=== PATIENT | male | born 1950 | race Caucasian/White ===

== ENCOUNTER 2017-11-29 06:43 | Inpatient (IN) ==
[2017-11-29] MEDS ORDERED: IPRATROPIUM/ALBUTEROL 3 ML AMPUL.NEB NEB ONE ×2 (06:51→06:52)
--- NOTE | 2017-11-29 07:36 | Emergency Department Note ---
General Adult HPI - General Chief complaint: Shortness of Breath/Dyspnea Stated complaint: Short of Breath Time Seen by Provider: 11/29/17 07:27 Mode of arrival: ambulatory - History of Present Illness HPI Narrative: This patient has had flulike symptoms since . He has had diarrhea aches and pains slight nausea and shortness of breath. He is only had a slight cough. Most of the symptoms except the shortness of breath have improved. Shortness of breath has gotten worse. He does not have a history of COPD or asthma. He has had some fluid retention in the past. - Related Data Home Medications Medication Instructions Recorded Confirmed diflorasone 0.05 % topical cream 1 applic TOPICAL BID PRN 09/25/15 11/29/17 Previous Rx's Medication Instructions Recorded Accu-Chek Softclix Lancing See Dose Instructions .ROUTE 11/08/15 Device+Lancets kit .MEDSUPPLY #1 each NS blood-glucose meter kit See Dose Instructions .ROUTE 11/08/15 .MEDSUPPLY #1 each lisinopril 40 mg tablet 40 mg PO QDAY #90 tab 12/10/16 sitagliptin 50 mg tablet 50 mg PO QDAY #90 tab 12/10/16 FreeStyle Lite Strips See Dose Instructions .ROUTE 12/25/16 .MEDSUPPLY #100 each NS carvedilol 25 mg tablet 25 mg PO BID #180 tab 12/25/16 lancets 28 gauge See Dose Instructions .ROUTE 05/24/17 .MEDSUPPLY #100 each amlodipine 10 mg tablet 10 mg PO QDAY #90 tab 09/15/17 simvastatin 20 mg tablet 20 mg PO QPM #90 tab 09/15/17 sertraline 50 mg tablet 50 mg PO QDAY #90 tab 11/05/17 glipizide 5 mg tablet 10 mg PO BID #360 tab 11/17/17 Allergies Allergy/AdvReac Type Severity Reaction Status Date / Time metformin AdvReac Mild Diarrhea Verified 11/24/16 11:45 Review of Systems All systems ED: reviewed and negative except as stated. 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) Paresthesia (Chronic) Overweight (Chronic) Osteoarthritis cervical spine (Chronic) Metabolic Syndrome X (Chronic) Hypotestosteronemia (Chronic) Hypertension, essential (Chronic) Hyperlipidemia (Chronic) Hoarseness (Chronic) Multilevel foraminal stenosis (Chronic) Erectile dysfunction (Chronic) Elevated LFTs (Chronic) Eczema (Chronic) Diverticulitis of colon (Chronic) Diverticular disease (Chronic) DMII (diabetes mellitus, type 2) (Chronic) Depression (Chronic) Carpal tunnel syndrome (Chronic) Bronchitis (Chronic) Actinic keratosis (Chronic) Past Surgical History H/O colonoscopy (Chronic 08/12/10) H/O nasal septoplasty (Inactive) H/O vasectomy (Inactive) History of meniscectomy of left knee (Inactive) Family History Father Atrial fibrillation Diabetes mellitus Coronary artery disease Cardiac disease Essential hypertension Disorder of thyroid Mother Malignant neoplasm of breast Malignant neoplasm of pancreas Medical history: Reports: DM, hypertension Surgical history ED: Reports: no surgical history - Social History smoking status: Never smoker Physical Exam Limitations: no limitations General appearance: alert Head: atraumatic Eye: Present: normal appearance ENT: normal exam Neck: Present: normal inspection Chest: Present: normal inspection Respiratory: Present: other (Scattered rhonchi) Cardiovascular: Present: regular rate, normal rhythm, normal heart sounds Abdominal: Present: soft. Absent: distention, tenderness Neurological: Present: alert Psychiatric: Present: normal affect, normal mood Skin: Present: warm, dry, intact Course Vital Signs Temperature 97.9 F 11/29/17 06:44 Pulse Rate 71 11/29/17 06:44 Respiratory Rate 24 H 11/29/17 06:44 Blood Pressure 118/66 11/29/17 06:44 Pulse Oximetry (%) 88 L 11/29/17 06:44 Temperature 97.9 F 11/29/17 06:44 Pulse Rate 65 11/29/17 07:49 Respiratory Rate 20 11/29/17 07:25 Blood Pressure 105/63 11/29/17 07:49 Pulse Oximetry (%) 88 L 11/29/17 07:49 Medical Decision Making - MDM Narrative Medical decision making narrative: Patient was positive influenza a and has bilateral lower lobe infiltrates. Will be admitted to the ICU by Dr. Lund. - Lab Data Lab results reviewed: Yes I reviewed the patient's lab results. Result diagrams: 11/29/17 07:54 11/29/17 07:54 Lab Results 11/29/17 11/29/17 11/29/17 Range/Units 07:54 07:54 07:54 WBC 4.5 (4.5-11.0) K/mcL RBC 4.50 (4.50-5.90) M/mcL Hgb 13.2 L (13.5-16.5) g/dL Hct 37.7 L (41.0-55.0) % MCV 83.8 (80.0-100.0) fL MCH 29.3 (26.0-34.0) pg MCHC 35.0 (31.0-36.0) g/dL RDW 14.1 (11.5-14.5) % Plt Count 160 (140-440) K/mcL MPV 8.7 (7.4-10.4) fL Gran % 73.5 (38.0-78.0) % Lymph % (Auto) 14.5 L (15.5-49.0) % [place] % (Auto) 10.9 (1.0-12.0) % Eos % (Auto) 0.8 (0.0-7.0) % Baso % (Auto) 0.3 (0.0-2.0) % Gran # 3.3 (1.8-8.0) K/mcL Lymph # (Auto) 0.6 L (1.5-4.8) K/mcL [place] # (Auto) 0.5 (0.1-0.9) K/mcL Eos # (Auto) 0 (0.0-0.7) K/mcL Baso # (Auto) 0 (0.0-0.3) K/mcL D-Dimer 0.72 H (0.00-0.40) ug/ml VBG Lactic Acid (0.5-2.2) mmol/L Sodium 136 (133-145) mmol/L Potassium 2.9 L* (3.3-5.1) mmol/L Chloride 96 (96-108) mmol/L Carbon Dioxide 25 (22-30) mmol/L Anion Gap 15.0 (8-16) BUN 15 (8-23) mg/dl Creatinine 1.2 (0.7-1.2) mg/dl GFR Calculation 63 Glucose 160 H (70-105) mg/dL Calcium 7.9 L (8.6-10.4) mg/dl Total Bilirubin 0.7 (0.0-1.0) mg/dL AST 66 H (0-37) U/l ALT 39 (0-40) U/l Alkaline Phosphatase 51 (39-117) U/L Troponin T (0-0.03) ng/ml Total Protein 7.0 (5.9-8.4) gm/dL Albumin 3.7 (3.2-5.2) gm/dL Globulin 3.3 (2.2-3.7) gm/dL Albumin/Globulin Ratio 1.1 (1.0-2.3) 11/29/17 11/29/17 Range/Units 07:54 07:54 WBC (4.5-11.0) K/mcL RBC (4.50-5.90) M/mcL Hgb (13.5-16.5) g/dL Hct (41.0-55.0) % MCV (80.0-100.0) fL MCH (26.0-34.0) pg MCHC (31.0-36.0) g/dL RDW (11.5-14.5) % Plt Count (140-440) K/mcL MPV (7.4-10.4) fL Gran % (38.0-78.0) % Lymph % (Auto) (15.5-49.0) % [place] % (Auto) (1.0-12.0) % Eos % (Auto) (0.0-7.0) % Baso % (Auto) (0.0-2.0) % Gran # (1.8-8.0) K/mcL Lymph # (Auto) (1.5-4.8) K/mcL [place] # (Auto) (0.1-0.9) K/mcL Eos # (Auto) (0.0-0.7) K/mcL Baso # (Auto) (0.0-0.3) K/mcL D-Dimer (0.00-0.40) ug/ml VBG Lactic Acid 1.6 (0.5-2.2) mmol/L Sodium (133-145) mmol/L Potassium (3.3-5.1) mmol/L Chloride (96-108) mmol/L Carbon Dioxide (22-30) mmol/L Anion Gap (8-16) BUN (8-23) mg/dl Creatinine (0.7-1.2) mg/dl GFR Calculation Glucose (70-105) mg/dL Calcium (8.6-10.4) mg/dl Total Bilirubin (0.0-1.0) mg/dL AST (0-37) U/l ALT (0-40) U/l Alkaline Phosphatase (39-117) U/L Troponin T < 0.01 (0-0.03) ng/ml Total Protein (5.9-8.4) gm/dL Albumin (3.2-5.2) gm/dL Globulin (2.2-3.7) gm/dL Albumin/Globulin Ratio (1.0-2.3) - Radiology Data Radiology results reviewed: Yes I reviewed the patient's radiology results. Disposition Pt seen by RESEARCH COMPLIANCE SPECIALIST/PA only: No Clinical Impression: Community acquired pneumonia, Influenza A Disposition: Xfer As Inpt ([facility]) Condition: Good Referrals: Edward Queevdo MD [Primary Care Provider] - Time of Disposition: 09:05
--- NOTE | 2017-11-29 07:39 | XRay Report ---
INDICATION: Dyspnea for three days TECHNIQUE: PA and lateral upright chest x-ray COMPARISON: None FINDINGS:Bilateral lower lobe infiltrates. Appearance is consistent with pneumonia. Follow-up radiographs recommended. Heart size and vascularity are normal. No pulmonary edema or pulmonary congestion. No evidence for significant pleural effusion. IMPRESSION: Bilateral lower lobe infiltrates consistent with pneumonia Interpreted and Authenticated by: Chan Hammer 11/29/17
[2017-11-29] MEDS ORDERED: DOXYCYCLINE 100 MG in DEXTROSE 5% IN WATER 100 ML IV ONE (07:45)
[2017-11-29] MEDS ORDERED: cefTRIAXone 1 GM VIAL IV ONE (07:45)
[2017-11-29] MEDS ORDERED: LACTATED RINGERS 1,000 ML IV SCH (07:45)
[2017-11-29 08:22] LABS: Basophils # (Auto) 0 K/mcL (0.0-0.3); Basophils % (Auto) 0.3 % (0.0-2.0); Eosinophils # (Auto) 0 K/mcL (0.0-0.7); Eosinophils % (Auto) 0.8 % (0.0-7.0); Granulocytes % (Auto) 73.5 % (38.0-78.0); Lymphocytes # (Auto) 0.6 K/mcL (1.5-4.8); Lymphocytes % (Auto) 14.5 % (15.5-49.0); Mean Cell Volume 83.8 fL (80.0-100.0); Mean Corpuscular Hemoglobin 29.3 pg (26.0-34.0); Monocytes # (Auto) 0.5 K/mcL (0.1-0.9); Monocytes % (Auto) 10.9 % (1.0-12.0); Platelet Count 160 K/mcL (140-440); Red Cell Distribution Width 14.1 % (11.5-14.5)
[2017-11-29 08:44] LABS: ALT/SGPT 39 U/l (0-40); Albumin 3.7 gm/dL (3.2-5.2); Albumin/Globulin Ratio 1.1 (1.0-2.3); Alkaline Phosphatase 51 U/L (39-117); Blood Urea Nitrogen 15 mg/dl (8-23)
[2017-11-29] MEDS ORDERED: ACETAMINOPHEN 1,000 MG/100 ML BOTTLE IV PRN (10:16)
[2017-11-29] MEDS ORDERED: ONDANSETRON 4 MG/2 ML VIAL IV PRN (10:16)
[2017-11-29] MEDS ORDERED: OSELTAMIVIR PHOSPHATE 75 MG CAPSULE PO ONE (10:16)
[2017-11-29] MEDS ORDERED: MAGNESIUM SULFATE 2 GM/50 ML BAG IV PRN (10:16)
[2017-11-29] MEDS ORDERED: VANCOMYCIN PER PHARMACY IV SCH (10:16)
[2017-11-29] MEDS ORDERED: POTASSIUM CHLORIDE 20 MEQ PACKET PO PRN (10:16)
[2017-11-29] MEDS ORDERED: ACETAMINOPHEN 325 MG TABLET PO PRN (10:16)
[2017-11-29] MEDS: 0.9 % SODIUM CHLORIDE 1,000 ML IV SCH (10:26)
[2017-11-29] MEDS: LEVOFLOXACIN 750 MG/150 ML BAG IV SCH (10:27)
[2017-11-29 10:42] LABS: C-Reactive Protein 4.5 mg/dl (0.0-0.8)
[2017-11-29] MEDS ORDERED: [UNRECOGNIZED DRUG - OTHER] TOPICAL PRN (10:42)
[2017-11-29] MEDS ORDERED: DEXTROSE 50% 50 ML VIAL IV PRN (10:43)
[2017-11-29] MEDS ORDERED: DEXTROSE 31 GM ORAL.SUSP PO PRN (10:43)
[2017-11-29 11:11] LABS: Appearance,Urine CLEAR; Bacteria,Urine 0 /hpf (0); Bilirubin,Urine NEG (NEG); Color,Urine YELLOW; Glucose,Urine (UA) NEGATIVE (NEG); Leukocyte Esterase,Urine 75 /uL (NEG); Mucus,Urine FEW /hpf (0); Protein,Urine NEG (NEG); Specific Gravity,Urine 1.008 (1.000-1.035); Urine Blood NEG mg/dL (<0.03); Urine RBC 2 /hpf (0-1); Urine Squamous Epithelial Cell 0 /hpf (0-4); Urine Transitional Epi Cells < 1 /hpf (0-2); Urine WBC 11 /hpf (0-4); Urobilinogen,Urine NEG (NEG)
--- NOTE | 2017-11-29 11:28 | History and Physical Report ---
DATE OF ADMISSION: 11/29/2017 PRIMARY CARE PHYSICIAN: Edward Quevedo M.D. REASON FOR ADMISSION: Worsening shortness of breath. HISTORY OF CHIEF COMPLAINT: The patient is a 67-year-old, otherwise fairly healthy, gentleman who has been feeling symptoms of upper respiratory infection, including flu-like symptoms with myalgias, weakness starting since . Patient's symptoms have progressed to the point the patient has had a gradual decline in functional status along with associated dyspnea on exertion but no associated orthopnea or paroxysmal nocturnal dyspnea. The patient endorses to cough. Over the last 24 hours, the patient has been experiencing dyspnea at rest and even minimal activity would lead to him huffing and puffing for at least 5 minutes. He was unable to perform activities of daily living. He also has associated diarrhea over the last couple of days, along with incontinence which has since improved. His also complained that he has not been thinking right. With increasing concerns, the patient came to [facility] Emergency Room. He endorses to sick contacts, including mother with similar symptoms. He denies medication changes, lower extremity swelling, rash, arthralgia, or joint pain. Initial workup in the ER was significant for chest infiltrates of bilateral lower lobes suggestive of pneumonia and influenza positive. EKG has evidence of right bundle branch block, sinus rhythm. White count 4.5. Potassium 2.9. Hospitalist Service was consulted. At the time of evaluation, the patient is alert, oriented, in moderate distress on 3 liters of oxygen. He was able to answer most of the questions and endorsed to history as above. He denies travel. He denies headache, photophobia, myalgias, weight loss or glandular swelling. REVIEW OF SYSTEMS: A ten-point review of system was performed and negative except the ones discussed above. PAST MEDICAL HISTORY: 1. Hypertension. 2. Diabetes mellitus type 2. 3. Neuropathy. 4. Anxiety disorder. 5. Hyperlipidemia. CURRENT MEDICATIONS: 1. Sitagliptin 50 mg daily. 2. Simvastatin 20 mg q.p.m. 3. Sertraline 50 mg daily. 4. Lisinopril 40 mg daily. 5. Glipizide 10 mg b.i.d. 6. Coreg 25 mg b.i.d. 7. Amlodipine 10 mg daily. FAMILY HISTORY: Significant for father with atrial fibrillation, coronary artery disease, diabetes mellitus type 2 and hypertension. Mother with breast and pancreatic cancer. SOCIAL HISTORY: The patient is , lives with his . No significant history of smoking, alcoholism or substance abuse. ALLERGIES: METFORMIN. PHYSICAL EXAMINATION: GENERAL: The patient is alert, oriented, in moderate distress from shortness of breath. VITAL SIGNS: BMI 35.6. Height 5 feet 11 inches. Blood pressure 104/59, respiration rate 20, temperature 97.9, pulse 71, sats 88% on room air improving to 93% on 3 liters of oxygen. HEENT: Pupils symmetric. Oral cavity is dry. No ear or nose discharge. Head is normocephalic and atraumatic. NECK: No lymphadenopathy. CHEST: S1, S2, regular rhythm. ESM grade 1. Diminished breath sounds bilateral bases, late inspiratory crackles posterior and lateral chest bilaterally. ABDOMEN: Soft, distended but no organomegaly. No fluid thrill. No guarding or rebound. LOWER EXTREMITIES: No cyanosis or clubbing. No joint swelling. SKIN: No suspicious lesions. Normal range of motion of the joints with no joint swelling or erythema. PSYCH: Alert, cooperative, minimally anxious. NEURO: Nonfocal, moving all four extremities. LABS AND IMAGING: White count 4.5, hemoglobin 13.2, platelets 160. Lactic acid 1.6. Sodium 136, potassium 2.9, creatinine 1.2, and BUN 15. LFTs unremarkable. X-ray chest: Bilateral infiltrates suggestive of pneumonia. ASSESSMENT AND PLAN: A 67-year-old admitted with influenza pneumonia with influenza positive A. 1. Influenza pneumonia. Continue Tamiflu and empiric coverage for super infection including Staph aureus. Continue bronchodilators along with pulmonary toilet. 2. Hypoxic respiratory insufficiency. Continue supplemental oxygen/bronchodilators. Etiology secondary to above. 3. Hypokalemia. Continue potassium replacement. 4. Other prior medical issues, including: a. History of diabetes mellitus type 2. Continue sliding scale insulin/sitagliptin. b. Hypertension. Continue amlodipine/Coreg. PLAN FOR TODAY: 1. Admit as inpatient. 2. Preexisting medical condition management as above. 3. DVT prophylaxis on heparin. 4. Echocardiogram. 5. Admitted to telemetry in light of hypoxic respiratory insufficiency, influenza pneumonia. 6. Continue potassium replacement. [email or web address] Job ID: [id number] Doc ID: [id number] Sunil Quevedo MD
[2017-11-29] MEDS: INSULIN LISPRO 1 UNIT/0.01 ML UNIT SQ SCH ×3 (11:51→20:54)
[2017-11-29] MEDS: VANCOMYCIN 1,500 MG in 0.9 % SODIUM CHLORIDE 500 ML IV SCH (13:46)
[2017-11-29] MEDS: IPRATROPIUM/ALBUTEROL 3 ML AMPUL.NEB NEB SCH ×4 (13:49→22:56)
[2017-11-29] MEDS: 0.9 % SODIUM CHLORIDE 10 ML SYRINGE IV SCH ×2 (14:02→21:49)
[2017-11-29] MEDS: CARVEDILOL 12.5 MG TABLET PO SCH (17:04)
[2017-11-29] MEDS: BUDESONIDE 0.5 MG/2 ML AMPUL.NEB NEB SCH ×2 (18:55→19:02)
[2017-11-29] MEDS: OSELTAMIVIR PHOSPHATE 75 MG CAPSULE PO SCH (20:53)
[2017-11-29] MEDS: DOCUSATE SODIUM 100 MG CAPSULE PO SCH (20:53)
[2017-11-29] MEDS: HEPARIN 5,000 UNIT/ML VIAL SQ SCH (20:53)
[2017-11-29] MEDS ORDERED: SIMVASTATIN 20 MG TABLET PO SCH (21:00)
[2017-11-29] MEDS ORDERED: SENNOSIDES/DOCUSATE SODIUM 1 TAB TABLET PO SCH (21:00)
[2017-11-30] MEDS: IPRATROPIUM/ALBUTEROL 3 ML AMPUL.NEB NEB SCH ×6 (03:10→23:01)
[2017-11-30 04:35] LABS: Mean Cell Volume 84.1 fL (80.0-100.0); Mean Corpuscular HGB Conc 34.5 g/dL (31.0-36.0); Platelet Count 149 K/mcL (140-440); Red Cell Distribution Width 14.5 % (11.5-14.5)
[2017-11-30 05:05] LABS: ALT/SGPT 35 U/l (0-40); Albumin 3.7 gm/dL (3.2-5.2); Albumin/Globulin Ratio 1.2 (1.0-2.3); Alkaline Phosphatase 48 U/L (39-117); Bilirubin,Direct < 0.2 mg/dL (0.0-0.3); Blood Urea Nitrogen 12 mg/dl (8-23); Gamma Glutamyl Transpeptidase 16 U/L (8-61); Uric Acid 3.2 mg/dL (2.5-8.0)
[2017-11-30] MEDS: 0.9 % SODIUM CHLORIDE 10 ML SYRINGE IV SCH ×3 (05:55→21:38)
[2017-11-30 06:23] LABS: Band Neutrophils % 12 % (0-10); Basophils % (Manual) 1 % (0-2); Lymphocytes % 18 % (15-49); Monocytes % (Manual) 13 % (1-12); Platelet Estimate NORMAL (NORMAL); RBC Morphology NORMAL (NORMAL); Segmented Neutrophils % 50 % (38-78)
[2017-11-30] MEDS: BUDESONIDE 0.5 MG/2 ML AMPUL.NEB NEB SCH ×2 (07:38→19:19)
[2017-11-30] MEDS: CARVEDILOL 12.5 MG TABLET PO SCH ×2 (08:04→17:20)
[2017-11-30] MEDS: 0.9 % SODIUM CHLORIDE 1,000 ML IV SCH (08:05)
[2017-11-30] MEDS: INSULIN LISPRO 1 UNIT/0.01 ML UNIT SQ SCH ×5 (08:05→21:38)
[2017-11-30] MEDS ORDERED: SERTRALINE 50 MG TABLET PO SCH (09:00)
[2017-11-30] MEDS ORDERED: sitaGLIPtin 50 MG TABLET PO SCH (09:00)
[2017-11-30] MEDS ORDERED: LISINOPRIL 20 MG TABLET PO SCH (09:00)
[2017-11-30] MEDS ORDERED: amLODIPine 10 MG TABLET PO SCH (09:00)
[2017-11-30] MEDS: HEPARIN 5,000 UNIT/ML VIAL SQ SCH ×2 (09:09→21:37)
[2017-11-30] MEDS: LEVOFLOXACIN 750 MG/150 ML BAG IV SCH (09:09)
[2017-11-30] MEDS: DOCUSATE SODIUM 100 MG CAPSULE PO SCH ×2 (09:09→21:39)
[2017-11-30] MEDS: OSELTAMIVIR PHOSPHATE 75 MG CAPSULE PO SCH ×2 (09:12→21:39)
[2017-11-30] MEDS: VANCOMYCIN 1,500 MG in 0.9 % SODIUM CHLORIDE 500 ML IV SCH (10:56)
[2017-11-30] MEDS ORDERED: DEXTROSE 31 GM ORAL.SUSP PO PRN (11:41)
[2017-11-30] MEDS ORDERED: MAGNESIUM SULFATE 2 GM/50 ML BAG IV PRN (11:41)
[2017-11-30] MEDS ORDERED: 0.9 % SODIUM CHLORIDE 1,000 ML IV SCH (11:41)
[2017-11-30] MEDS ORDERED: DEXTROSE 50% 50 ML VIAL IV PRN (11:41)
[2017-11-30] MEDS ORDERED: VANCOMYCIN PER PHARMACY IV SCH (11:41)
[2017-11-30] MEDS ORDERED: ACETAMINOPHEN 1,000 MG/100 ML BOTTLE IV PRN (11:41)
[2017-11-30] MEDS ORDERED: ACETAMINOPHEN 325 MG TABLET PO PRN (11:41)
[2017-11-30] MEDS ORDERED: [UNRECOGNIZED DRUG - OTHER] TOPICAL PRN (11:41)
[2017-11-30] MEDS ORDERED: ONDANSETRON 4 MG/2 ML VIAL IV PRN (11:41)
[2017-11-30] MEDS ORDERED: POTASSIUM CHLORIDE 20 MEQ PACKET PO PRN (11:41)
--- NOTE | 2017-11-30 15:24 | Internal Med Progress Note ---
Medical - PN: Subj Patient information: Note initiated : 11/30/17 at 3:22 pm Service Date, if different from initiated Date: [] Patient: Javed Kemp 67 y/o M admitted on 11/29/17 for SOB/Influenza Pneumonia with Influenza Positive A. Chief Complaint: [] Interval history: 11/29 patient admitted with influenza a pneumonia. admitted to telemetry.started on Tamiflu. Empiric coverage for staph. Associated hypoxic respiratory insufficiency requiring 3 L oxygen. Hypokalemia 2.9 on replacement. 11/30-patient doing dramatically better. Improved cough shortness of breath. Fever defervesced. No overnight events. No concerns per staff.potassium 3.3.cultures negative so far. Transfer to medical floor.. - Constitutional Vitals: Vital Signs Temp Pulse Resp BP Pulse Ox 98.9 F 72 16 136/69 93 11/30/17 12:40 11/30/17 12:40 11/30/17 12:40 11/30/17 12:40 11/30/17 12:40 Period Temp Pulse Resp BP Sys/Julian Pulse Ox Last 24 Hr 98.5 F-99.6 F 61-81 16-20 118-157/61-83 89-98 Intake and Output 11/30/17 11/30/17 11/30/17 05:59 13:59 21:59 Intake Total 240 / 240 1740 / 1740 Output Total 750 / 750 865 / 865 Balance -510 / -510 875 / 875 Weight 256 lb 4.8 oz Patient Weight 12/01/17 05:59 Weight 256 lb 4.8 oz Intake & Output: Intake & Output 11/30/17 11/30/17 11/30/17 05:59 13:59 21:59 Intake Total 240 / 240 1740 / 1740 Output Total 750 / 750 865 / 865 Balance -510 / -510 875 / 875 Weight 256 lb 4.8 oz Intake: IV 1500 / 1500 Sodium Chloride 0.9% 1,000 ml @ 1000 / 1000 50 mls/hr IV .Q20H RUBÉN Rx#: [id number] Vancomycin 1,500 mg In Sodium 500 / 500 Chloride 0.9% 500 ml @ 333.3 mls/hr IV Q24H RUBÉN Rx#: [id number] Oral 240 / 240 240 / 240 Output: Void Amount 750 / 750 865 / 865 Other: Meal Lunch Percent of Meal Consumed 100% Feeding Ability Independent Stool Size Moderate Stool Color Brown Stool Consistency Soft Formed # Voids 1 1 # Bowel Movements 1 General appearance: cooperative, no acute distress Exam: alert oriented nonlabored breathingOn 2 L oxygen No anxiety nondistended abdomen No lymphedema Medical - PN: Obj Da - Labs CBC & Chem 7: 11/30/17 03:30 11/30/17 03:30 Labs: Abnormal Lab Results 11/30/17 11/30/17 11/29/17 03:30 03:30 10:45 Hgb 13.1 L Hct 37.8 L Lymph % (Auto) Lymph # (Auto) Band Neutrophils % 12 H Monocytes % (Manual) 13 H Reactive Lymphocytes 6 H ESR D-Dimer Potassium Glucose 127 H Calcium 7.9 L AST 48 H Lactate Dehydrogenase 342 H C-Reactive Protein Ur Leukocyte Esterase 75 A Urine RBC 2 H Urine WBC 11 H 11/29/17 11/29/17 11/29/17 10:16 07:54 07:54 Hgb Hct Lymph % (Auto) Lymph # (Auto) Band Neutrophils % Monocytes % (Manual) Reactive Lymphocytes ESR 38 H D-Dimer Potassium 2.9 L* Glucose 160 H Calcium 7.9 L AST 66 H Lactate Dehydrogenase C-Reactive Protein 4.5 H Ur Leukocyte Esterase Urine RBC Urine WBC 11/29/17 11/29/17 07:54 07:54 Hgb 13.2 L Hct 37.7 L Lymph % (Auto) 14.5 L Lymph # (Auto) 0.6 L Band Neutrophils % Monocytes % (Manual) Reactive Lymphocytes ESR D-Dimer 0.72 H Potassium Glucose Calcium AST Lactate Dehydrogenase C-Reactive Protein Ur Leukocyte Esterase Urine RBC Urine WBC Meds: Medications Acetaminophen (Tylenol) 650 mg PO Q4-6HP PRN PRN Reason: PAIN/FEVER > 101 Albuterol/Ipratropium (Duoneb) 3 ml NEB Q4HRT [facility] Amlodipine Besylate (Norvasc) 10 mg PO QDAY [facility] Budesonide (Pulmicort) 0.5 mg NEB Q12 [facility] Carvedilol (Coreg) 25 mg PO BIDCC [facility] Dextrose (Dextrose 50%) 0 ml IV UD PRN PRN Reason: Hypoglycemia Diagnostic Test (Pha) (Accu-Chek) 1 each FS ACHS RUBÉN Last Admin: 11/30/17 12:04 Dose: 1 each Docusate Sodium (Colace) 100 mg PO BID [facility] Glucose (Insta-Glucose) 15 gm PO PRN PRN PRN Reason: Hypoglycemia Heparin Sodium (Porcine) (Heparin) 5,000 unit SQ Q12 [facility] Levofloxacin (Levaquin) 750 mg in 150 mls @ 100 mls/hr IV DAILY [facility] Magnesium Sulfate (Magnesium Sulfate) 2 gm in 50 mls @ 50 mls/hr IV UD PRN PRN Reason: MG = or < 1.7 Acetaminophen (Ofirmev) 1,000 mg in 100 mls @ 200 mls/hr IV Q6HP PRN PRN Reason: PAIN/FEVER > 101 Vancomycin HCl 1,500 mg/ (Sodium Chloride) 500 mls @ 333.3 mls/hr IV DAILY@ 1000 [facility] Insulin Human Lispro (Humalog) 0 unit SQ ACHS RUBÉN PRN Reason: Protocol Last Admin: 11/30/17 12:35 Dose: 3 unit Lisinopril (Zestril) 40 mg PO DAILY [facility] Ondansetron HCl (Zofran) 4 mg IV Q4-6HP PRN PRN Reason: Nausea And Vomiting Oseltamivir Phosphate (Tamiflu) 75 mg PO BID [facility] Diflorasone Diacetate 0.05% Topical Cream 1 dose TOPICAL BID PRN PRN Reason: Itching Potassium Chloride (Klor-Con) 40 meq PO DAILYP PRN PRN Reason: K+ < 3.5 Last Admin: 11/30/17 15:01 Dose: 40 meq Senna/Docusate Sodium (Senna Plus Tablet) 1 tab PO HS [facility] Sertraline HCl (Zoloft) 50 mg PO QDAY [facility] Simvastatin (Zocor) 20 mg PO QPM [facility] Sitagliptin Phosphate (Januvia) 50 mg PO QDAY [facility] Sodium Chloride (Saline Flush) 10 ml IV Q8 [facility] Last Admin: 11/30/17 12:51 Dose: 10 ml Vancomycin HCl (Vancomycin Per Pharmacy) 1 order IV [facility] [place] - PN: A/P - Time Spent With Patient Total time spent is greater than 50% in coordination of care (as documented) at patient's floor/unit and/or counseling patient: 15 - 24 minutes - Narrative A/P Narrative: assessment * Influenza pneumonia-on Tamiflu/empiric staph coverage. Clinically improving. DC vancomycin in 24 hours * Hypoxic respiratory infection clinically improving on 2 L oxygen * Hypokalemia improving from 2.93.3. Continue potassium replacement. * DM type II on sliding scale insulin/sitagliptin * History of hypertension on amlodipine/Coreg * full codestatus * Prophylaxis heparin Plan * continue conservative management as above * replace potassium * Pre-existing medical condition management as above Medical - PN: Qual - Stroke Symptom Onset Unknown: No - VTE Deep Vein Thrombosis/Pulmonary Embolism Present on Admission: No
[2017-11-30] MEDS ORDERED: SIMVASTATIN 20 MG TABLET PO SCH (21:00)
[2017-11-30] MEDS ORDERED: SENNOSIDES/DOCUSATE SODIUM 1 TAB TABLET PO SCH (21:00)
[2017-12-01] MEDS: IPRATROPIUM/ALBUTEROL 3 ML AMPUL.NEB NEB SCH ×2 (03:30→07:38)
[2017-12-01 05:53] LABS: Mean Corpuscular HGB Conc 35.5 g/dL (31.0-36.0); Mean Corpuscular Hemoglobin 29.8 pg (26.0-34.0); Platelet Count 137 K/mcL (140-440); RBC 3.91 M/mcL (4.50-5.90)
--- NOTE | 2017-12-01 06:20 | XRay Report ---
INDICATION: Pneumonia. Follow-up. TECHNIQUE: AP chest x-ray,portable semiupright COMPARISON: 11/29/2017 FINDINGS:Bilateral, bibasilar infiltrates. These are more prominent than on previous examination. Continued radiographic follow-up recommended. Heart size appears enlarged but this is probably related to AP portable positioning. No evidence for congestive heart failure. IMPRESSION: 1. Bibasilar infiltrates, slightly worse than on 11/29/2017. 2. Continued follow-up recommended. Interpreted and Authenticated by: Chan Hammer 12/01/17
[2017-12-01 06:40] LABS: ALT/SGPT 31 U/l (0-40); Albumin 3.3 gm/dL (3.2-5.2); Albumin/Globulin Ratio 1.1 (1.0-2.3); Alkaline Phosphatase 43 U/L (39-117); Bilirubin,Direct < 0.2 mg/dL (0.0-0.3); Blood Urea Nitrogen 10 mg/dl (8-23); Gamma Glutamyl Transpeptidase 16 U/L (8-61); Uric Acid 2.5 mg/dL (2.5-8.0)
[2017-12-01] MEDS: 0.9 % SODIUM CHLORIDE 10 ML SYRINGE IV SCH (07:04)
[2017-12-01] MEDS: INSULIN LISPRO 1 UNIT/0.01 ML UNIT SQ SCH (07:30)
[2017-12-01] MEDS: HEPARIN 5,000 UNIT/ML VIAL SQ SCH (07:31)
[2017-12-01] MEDS: OSELTAMIVIR PHOSPHATE 75 MG CAPSULE PO SCH (07:31)
[2017-12-01] MEDS: CARVEDILOL 12.5 MG TABLET PO SCH (07:31)
[2017-12-01] MEDS: BUDESONIDE 0.5 MG/2 ML AMPUL.NEB NEB SCH (07:38)
[2017-12-01] MEDS: DOCUSATE SODIUM 100 MG CAPSULE PO SCH (08:02)
[2017-12-01 08:12] LABS: Lymphocytes % 26 % (15-49); Monocytes % (Manual) 11 % (1-12); Platelet Estimate DECREASED (NORMAL); RBC Morphology NORMAL (NORMAL); Segmented Neutrophils % 63 % (38-78)
[2017-12-01] MEDS ORDERED: LISINOPRIL 20 MG TABLET PO SCH (09:00)
[2017-12-01] MEDS ORDERED: sitaGLIPtin 50 MG TABLET PO SCH (09:00)
[2017-12-01] MEDS ORDERED: amLODIPine 10 MG TABLET PO SCH (09:00)
[2017-12-01] MEDS ORDERED: LEVOFLOXACIN 750 MG/150 ML BAG IV SCH (09:00)
[2017-12-01] MEDS ORDERED: SERTRALINE 50 MG TABLET PO SCH (09:00)
--- NOTE | 2017-12-01 09:52 | Discharge Summary ---
Medical - DS: Prov Patient information: Note initiated : 12/01/17 at 9:50 am Service Date, if different from initiated Date: [] Patient: Javed Kemp 67 y/o M admitted on 11/29/17 for SOB/Influenza Pneumonia with Influenza Positive A. Chief Complaint: [] Date of admission: 11/29/17 10:00 Discharge date: 12/01/17 Primary care physician: Edward Quevedo Medical - DS: Meds - Discharge Medications Active and Home Medications: Home Medications diflorasone 0.05 % topical cream 1 applic TOPICAL BID PRN 09/25/15 [History Confirmed 11/29/17 Last Taken 11/29/17 09:00] lisinopril 40 mg tablet 40 mg PO QDAY #90 tab 12/10/16 [Rx Confirmed 11/29/17 Last Taken 11/29/17 09:00] sitagliptin 50 mg tablet 50 mg PO QDAY #90 tab 12/10/16 [Rx Confirmed 11/29/17 Last Taken 11/29/17 09:00] carvedilol 25 mg tablet 25 mg PO BID #180 tab 12/25/16 [Rx Confirmed 11/29/17 Last Taken 11/29/17 09:00] amlodipine 10 mg tablet 10 mg PO QDAY #90 tab 09/15/17 [Rx Confirmed 11/29/17 Last Taken 11/29/17 09:00] simvastatin 20 mg tablet 20 mg PO QPM #90 tab 09/15/17 [Rx Confirmed 11/29/17 Last Taken 11/29/17 09:00] sertraline 50 mg tablet 50 mg PO QDAY #90 tab 11/05/17 [Rx Confirmed 11/29/17 Last Taken 11/29/17 09:00] glipizide 5 mg tablet 10 mg PO BID #360 tab 11/17/17 [Rx Confirmed 11/29/17 Last Taken 11/29/17 09:00] Medical - DS: Hosp Hospital course: Discharge diagnosis * Influenza pneumonia-clinical improvement noted on Tamiflu. ischarge home on additional 3 days of Tamiflu. * Hypoxic respiratory insufficiency- clinically improving down to 1 L oxygen. exercise oximetry and discharged home oxygen if qualifies. * Hypokalemia improving from 2.9->3.3. Continue oral potassium replacement. * DM type II on sliding scale insulin/sitagliptin * History of hypertension managed on amlodipine/Coreg [facility] Mr. Kemp is a 67 year old M 11/29 patient admitted with influenza a pneumonia. admitted to telemetry.started on Tamiflu. Empiric coverage for staph. Associated hypoxic respiratory insufficiency requiring 3 L oxygen. Hypokalemia 2.9 on replacement. 11/30-patient doing dramatically better. Improved cough shortness of breath. Fever defervesced. No overnight events. No concerns per staff.potassium 3.3.cultures negative so far. Transfer to medical floor.. December 01- patient doing well. No overnight events. Currently on 1 L oxygen. Ambulating. Improved shortness of breath. No fever. No concerns per staff. Tolerating diet. Episode of loose bowel movement this morning but no abdominal pain and cramps. Discharge diagnosis: . - Time Spent with Patient Total time spent providing and/or coordinating discharge services: Greater than 30 minutes Medical - DS: Exam - Constitutional Vitals: Vital Signs Temp Pulse Pulse Resp BP BP Pulse Ox 12/01/17 07:41 72 18 92 12/01/17 07:40 92 12/01/17 07:39 97.8 F 79 20 170/68 90 12/01/17 03:35 97.7 F 71 20 163/81 95 12/01/17 00:00 97.3 F 65 18 154/72 91 11/30/17 23:11 71 16 94 11/30/17 20:00 98.8 F 67 16 144/64 92 11/30/17 19:33 70 16 91 11/30/17 16:00 98.8 F 77 16 145/76 93 11/30/17 15:33 66 16 11/30/17 12:40 98.9 F 72 16 136/69 93 11/30/17 11:30 68 20 Intake and Output 11/30/17 12/01/17 12/01/17 21:59 05:59 13:59 Intake Total 600 / 600 200 / 200 Output Total 325 / 325 1000 / 1000 220 / 220 Balance 275 / 275 -800 / -800 -220 / -220 Intake: Oral 600 / 600 200 / 200 Output: Void Amount 325 / 325 1000 / 1000 220 / 220 Other: Meal Dinner Percent of Meal Consumed 100% Stool Size Moderate Moderate Stool Color Brown Brown Stool Consistency Soft Loose Formed # Voids 1 1 # Bowel Movements 1 1 Weight 260 lb 14.4 oz Medical - DS: Data Labs on day of discharge: Labs from last 24 hours 12/01/17 12/01/17 04:35 04:35 WBC 4.6 RBC 3.91 L Hgb 11.7 L Hct 32.9 L MCV 84.0 MCH 29.8 MCHC 35.5 RDW 14.0 Plt Count 137 L MPV 8.7 Total Counted 100 Seg Neutrophils % 63 Band Neutrophils % Not Reportable Lymphocytes % 26 Monocytes % (Manual) 11 Platelet Estimate Decreased A RBC Morphology Normal Sodium 139 Potassium 3.3 Chloride 100 Carbon Dioxide 26 Anion Gap 13.0 BUN 10 Creatinine 0.7 GFR Calculation 98 Glucose 152 H Uric Acid 2.5 Calcium 7.9 L Phosphorus 3.0 Magnesium 1.9 Total Bilirubin 0.7 Direct Bilirubin < 0.2 GGT 16 AST 32 ALT 31 Alkaline Phosphatase 43 Lactate Dehydrogenase 301 H Total Protein 6.2 Albumin 3.3 Globulin 2.9 Albumin/Globulin Ratio 1.1 Triglycerides 75 Preliminary micro results at discharge 11/29/17 07:53 Blood Culture - Preliminary Blood 11/29/17 08:00 Blood Culture - Preliminary Blood Medical - DS: A/P - Patient/Caregiver Discharge Instructions Activity: increase activity as tolerated Diet: Regular Diet Additional Instructions: continue Tamiflu for additional 3 days Return to ER or worsening fever chills shortness of breath follow-up PCP in 5 days RT to perform exercise oximetry for home oxygen qualification - Follow up Plan Follow up with: Edward Quevedo MD [Primary Care Provider] - Disposition: Home, Self-Care Prognosis: Good Rehab Potential: Fair I certify that the patient requires SNF services: No Overall status at discharge: patient is progressing back to baseline Medical - DS: Qual - VTE Deep Vein Thrombosis/Pulmonary Embolism Present on Admission: No
[2017-12-01] MEDS ORDERED: VANCOMYCIN 1,500 MG in 0.9 % SODIUM CHLORIDE 500 ML IV SCH ×3 (10:00→12:00)
[2017-12-01] MEDS ORDERED: IPRATROPIUM/ALBUTEROL 3 ML AMPUL.NEB NEB PRN (10:25)
== END 2017-12-01 11:31 | disposition home or self-care (01) | DRG 195 ==
LOC: ED 06:43 → ICU 10:00 → MEDSUR 11-30 12:14
PROVIDERS: ADMIT Internal Medicine; ATTEND Internal Medicine